=== PATIENT | male | born 1970 | race Asian ===

== ENCOUNTER 2016-06-29 13:38 | Outpatient (CLI) | payer OTHER ==
[~2016-06-29 13:38] MED LIST: AMOX500T5 PO; CETI10TA PO; FLUT0.05 NAS; GLIM4TAB PO; LANTUS100 MG/ML SC; LEVAQUIN500 MG PO; MECL25TA84 PO; PERCOCET1 TA1 PO; WELCHOL625 MG PO; ZESTRIL40 MG PO
== END 2016-06-29 14:38 | disposition home or self-care (01) ==
LOC: LAB 13:38
DX: A09 Infectious gastroenteritis and colitis, unspecified (principal)
CPT/HCPCS: 87045; 87328; 87329; 87493; 87798; 87899

== ENCOUNTER 2016-11-26 21:45 | Emergency (ER) | payer OTHER ==
[~2016-11-26] VITALS: Ht 188 cm; Wt 97.5 kg
[2016-11-26 22:24] LABS: PLATELET COUNT 190 K/uL (142-355)
[2016-11-26 23:39] VITALS: BP 147/89; TEMP 98.7
== END 2016-11-26 23:40 | disposition home or self-care (01) ==
LOC: ED 21:45
DX: S05.11XA Contusion of eyeball and orbital tissues, right eye, initial encounter (principal); V29.9XXA Motorcycle rider (driver) (passenger) injured in unspecified traffic accident, initial encounter; Y93.89 Activity, other specified; Y92.89 Other specified places as the place of occurrence of the external cause
CPT/HCPCS: 36415; 80053; 85027; 99283

== ENCOUNTER 2016-12-09 08:59 | Day surgery (SDC) | payer OTHER | END 2016-12-09 11:34 | disposition home or self-care (01) | LOC: OR 08:59 | PROC: 06HY33Z Insertion of Infusion Device into Lower Vein, Percutaneous Approach (ICD-10-PCS; principal; 2016-12-09) | DX: M86.471 Chronic osteomyelitis with draining sinus, right ankle and foot (principal) | CPT/HCPCS: 36571; C1751 ==

== ENCOUNTER 2016-12-12 15:33 | Outpatient (CLI) | payer OTHER ==
[~2016-12-12] VITALS: Ht 189.2 cm; Wt 99.8 kg
== END 2016-12-12 18:00 | disposition home or self-care (01) ==
LOC: INF 15:33
DX: M86.171 Other acute osteomyelitis, right ankle and foot (principal)
CPT/HCPCS: 96365; 96375

== ENCOUNTER 2016-12-13 17:06 | Outpatient (CLI) | payer OTHER ==
[~2016-12-13] VITALS: Ht 189.2 cm; Wt 99.8 kg
[2016-12-13 17:45] VITALS: BP 162/98; TEMP 98.3
[2016-12-13 18:34] VITALS: BP 137/89; TEMP 98.3
== END 2016-12-13 18:34 | disposition home or self-care (01) ==
LOC: INF 17:06
DX: M86.171 Other acute osteomyelitis, right ankle and foot (principal)
CPT/HCPCS: 96365; 96375; J0878

== ENCOUNTER 2016-12-14 15:45 | Outpatient (CLI) | payer OTHER ==
[~2016-12-14] VITALS: Ht 189.2 cm; Wt 99.8 kg
[2016-12-14 15:55] VITALS: BP 123/76; TEMP 98.4
[2016-12-14 16:58] VITALS: BP 111/70
== END 2016-12-14 18:00 | disposition home or self-care (01) ==
LOC: INF 15:45
DX: M86.171 Other acute osteomyelitis, right ankle and foot (principal)
CPT/HCPCS: 96365; 96375

== ENCOUNTER 2016-12-15 16:03 | Outpatient (CLI) | payer OTHER ==
[~2016-12-15] VITALS: Ht 189.2 cm; Wt 99.8 kg
[2016-12-15 16:10] VITALS: BP 110/72; TEMP 98.4
[2016-12-15 16:55] VITALS: BP 103/70
== END 2016-12-15 16:55 | disposition home or self-care (01) ==
LOC: INF 16:03
DX: M86.171 Other acute osteomyelitis, right ankle and foot (principal)
CPT/HCPCS: 96365; 96375; J0878

== ENCOUNTER 2016-12-16 15:51 | Outpatient (CLI) | payer OTHER ==
[~2016-12-16] VITALS: Ht 170.2 cm; Wt 77.1 kg
== END 2016-12-16 19:18 | disposition home or self-care (01) ==
LOC: INF 15:51
DX: M86.171 Other acute osteomyelitis, right ankle and foot (principal)
CPT/HCPCS: 96365; J0878

== ENCOUNTER 2016-12-17 16:41 | Outpatient (CLI) | payer OTHER | END 2016-12-17 19:45 | disposition home or self-care (01) | LOC: INF 16:41 | DX: M86.171 Other acute osteomyelitis, right ankle and foot (principal) | CPT/HCPCS: 96365; J0878; J1642 ==

== ENCOUNTER 2016-12-18 16:38 | Outpatient (CLI) | payer OTHER | END 2016-12-18 19:40 | disposition home or self-care (01) | LOC: INF 16:38 | DX: M86.171 Other acute osteomyelitis, right ankle and foot (principal) | CPT/HCPCS: 96365; J0878 ==

== ENCOUNTER 2016-12-20 15:40 | Outpatient (CLI) | payer OTHER ==
[~2016-12-20] VITALS: Ht 189.2 cm; Wt 99.8 kg
[2016-12-20 15:45] VITALS: BP 131/79; TEMP 97.4
[2016-12-20 16:40] VITALS: BP 120/75
== END 2016-12-20 16:40 | disposition home or self-care (01) ==
LOC: INF 15:40
DX: M86.171 Other acute osteomyelitis, right ankle and foot (principal)
CPT/HCPCS: 96365; 96375; J0878

== ENCOUNTER 2016-12-21 13:11 | Outpatient (CLI) | payer OTHER ==
[~2016-12-21] VITALS: Ht 188 cm; Wt 97.5 kg
[2016-12-21 13:25] VITALS: BP 112/75; TEMP 97.2
[2016-12-21 14:00] VITALS: BP 123/82; TEMP 97.2
== END 2016-12-21 14:03 | disposition home or self-care (01) ==
LOC: INF 13:11
DX: M86.171 Other acute osteomyelitis, right ankle and foot (principal)
CPT/HCPCS: 96365; 96375; J0878; J1642

== ENCOUNTER 2016-12-22 15:49 | Outpatient (CLI) | payer OTHER ==
[~2016-12-22] VITALS: Ht 189.2 cm; Wt 99.8 kg
[2016-12-22 16:00] VITALS: BP 129/78; TEMP 97.6
== END 2016-12-22 16:45 | disposition home or self-care (01) ==
LOC: INF 15:49
DX: M86.171 Other acute osteomyelitis, right ankle and foot (principal)
CPT/HCPCS: 96365; 96375; J0878

== ENCOUNTER 2016-12-23 15:36 | Outpatient (CLI) | payer OTHER ==
[~2016-12-23] VITALS: Ht 188 cm; Wt 97.5 kg
[2016-12-23 16:42] LABS: SODIUM 138 mmol/L (136-145)
== END 2016-12-23 18:00 | disposition home or self-care (01) ==
LOC: INF 15:36
PROVIDERS: Family Medicine
DX: M86.171 Other acute osteomyelitis, right ankle and foot (principal)
CPT/HCPCS: 80048; 96365; J0878

== ENCOUNTER 2016-12-25 11:29 | Outpatient (CLI) | payer OTHER ==
[~2016-12-25] VITALS: Ht 189.2 cm; Wt 99.8 kg
== END 2016-12-25 19:03 | disposition home or self-care (01) ==
LOC: INF 11:29
DX: M86.171 Other acute osteomyelitis, right ankle and foot (principal)
CPT/HCPCS: 96365; J0878; J1642

== ENCOUNTER 2016-12-26 15:32 | Outpatient (CLI) | payer OTHER ==
[~2016-12-26] VITALS: Ht 188 cm; Wt 97.5 kg
[2016-12-26 16:42] LABS: POTASSIUM 3.8 mmol/L (3.6-5.2); SODIUM 142 mmol/L (136-145)
== END 2016-12-26 18:00 | disposition home or self-care (01) ==
LOC: INF 15:32
PROVIDERS: Family Medicine
DX: M86.171 Other acute osteomyelitis, right ankle and foot (principal)
CPT/HCPCS: 80048; 96365; 96375; J0878

== ENCOUNTER 2016-12-27 15:06 | Outpatient (CLI) | payer OTHER ==
[~2016-12-27] VITALS: Ht 189.2 cm; Wt 99.8 kg
[2016-12-27 15:30] VITALS: BP 143/87; TEMP 97.5
[2016-12-27 16:30] VITALS: BP 133/79
== END 2016-12-27 16:30 | disposition home or self-care (01) ==
LOC: INF 15:06
DX: M86.171 Other acute osteomyelitis, right ankle and foot (principal)
CPT/HCPCS: 96365; J0878

== ENCOUNTER 2016-12-28 13:18 | Outpatient (CLI) | payer OTHER ==
[~2016-12-28] VITALS: Ht 189.2 cm; Wt 99.8 kg
[2016-12-28 13:25] VITALS: BP 124/82; TEMP 97.8
[2016-12-28 14:15] VITALS: BP 123/77; TEMP 98.5
== END 2016-12-28 14:20 | disposition home or self-care (01) ==
LOC: INF 13:18
DX: M86.171 Other acute osteomyelitis, right ankle and foot (principal)
CPT/HCPCS: 96365; 96375; J0878; J1642

== ENCOUNTER 2016-12-29 15:19 | Outpatient (CLI) | payer OTHER ==
[~2016-12-29] VITALS: Ht 189.2 cm; Wt 99.8 kg
[2016-12-29 15:25] VITALS: BP 103/64; TEMP 97.7
[2016-12-29 15:40] VITALS: BP 108/65
== END 2016-12-29 16:30 | disposition home or self-care (01) ==
LOC: INF 15:19
DX: M86.171 Other acute osteomyelitis, right ankle and foot (principal)
CPT/HCPCS: 96365; 96375; J0878

== ENCOUNTER 2016-12-30 13:13 | Outpatient (CLI) | payer OTHER ==
[~2016-12-30] VITALS: Ht 188 cm; Wt 97.5 kg
== END 2016-12-30 19:11 | disposition home or self-care (01) ==
LOC: INF 13:13
DX: M86.171 Other acute osteomyelitis, right ankle and foot (principal)
CPT/HCPCS: 96365; J0878

== ENCOUNTER 2016-12-31 15:40 | Outpatient (CLI) | payer OTHER ==
[~2016-12-31] VITALS: Ht 189.2 cm; Wt 99.8 kg
== END 2016-12-31 19:02 | disposition home or self-care (01) ==
LOC: INF 15:40
DX: M86.171 Other acute osteomyelitis, right ankle and foot (principal)
CPT/HCPCS: 96365; J0878; J1642

== ENCOUNTER 2017-01-01 13:01 | Outpatient (CLI) | payer OTHER ==
[~2017-01-01] VITALS: Ht 189.2 cm; Wt 99.8 kg
== END 2017-01-01 19:23 | disposition home or self-care (01) ==
LOC: INF 13:01
DX: M86.171 Other acute osteomyelitis, right ankle and foot (principal)
CPT/HCPCS: 96365; J0878

== ENCOUNTER 2017-01-02 15:16 | Outpatient (CLI) | payer OTHER ==
[~2017-01-02] VITALS: Ht 189.2 cm; Wt 97.5 kg
== END 2017-01-02 19:00 | disposition home or self-care (01) ==
LOC: INF 15:16
DX: M86.171 Other acute osteomyelitis, right ankle and foot (principal)
CPT/HCPCS: 96365; 96375; J0878

== ENCOUNTER 2017-01-03 15:00 | Outpatient (CLI) | payer OTHER ==
[~2017-01-03] VITALS: Ht 189.2 cm; Wt 97.5 kg
[2017-01-03 16:07] VITALS: BP 117/70; TEMP 97.8
== END 2017-01-03 19:05 | disposition home or self-care (01) ==
LOC: INF 15:00
DX: M86.171 Other acute osteomyelitis, right ankle and foot (principal)
CPT/HCPCS: 96365; 96375; J0878

== ENCOUNTER 2017-01-05 15:30 | Outpatient (CLI) | payer OTHER ==
[~2017-01-05] VITALS: Ht 189.2 cm; Wt 99.8 kg
[2017-01-05 15:35] VITALS: BP 132/85; TEMP 97.6
[2017-01-05 16:16] VITALS: BP 114/71
== END 2017-01-05 16:28 | disposition home or self-care (01) ==
LOC: INF 15:30
DX: M86.171 Other acute osteomyelitis, right ankle and foot (principal)
CPT/HCPCS: 96365; 96375; J0878

== ENCOUNTER 2017-01-06 15:10 | Outpatient (CLI) | payer OTHER ==
[~2017-01-06] VITALS: Ht 189.2 cm; Wt 99.8 kg
[2017-01-06 16:18] LABS: POTASSIUM 3.9 mmol/L (3.6-5.2); SODIUM 140 mmol/L (136-145)
== END 2017-01-06 18:30 | disposition home or self-care (01) ==
LOC: INF 15:10
PROVIDERS: Family Medicine
DX: M86.171 Other acute osteomyelitis, right ankle and foot (principal)
CPT/HCPCS: 80048; 96365; 96375; J0878

== ENCOUNTER 2017-01-07 15:01 | Outpatient (CLI) | payer OTHER ==
[~2017-01-07] VITALS: Ht 189.2 cm; Wt 99.8 kg
== END 2017-01-07 18:05 | disposition home or self-care (01) ==
LOC: INF 15:01
DX: M86.171 Other acute osteomyelitis, right ankle and foot (principal)
CPT/HCPCS: 96365; 96375; J0878

== ENCOUNTER 2017-01-08 14:36 | Outpatient (CLI) | payer OTHER ==
[~2017-01-08] VITALS: Ht 189.2 cm; Wt 99.8 kg
== END 2017-01-08 18:00 | disposition home or self-care (01) ==
LOC: INF 14:36
DX: M86.171 Other acute osteomyelitis, right ankle and foot (principal)
CPT/HCPCS: 96365; J0878

== ENCOUNTER 2017-01-09 15:15 | Outpatient (CLI) | payer OTHER ==
[~2017-01-09] VITALS: Ht 189.2 cm; Wt 99.8 kg
== END 2017-01-09 18:30 | disposition home or self-care (01) ==
LOC: INF 15:15
DX: M86.171 Other acute osteomyelitis, right ankle and foot (principal)
CPT/HCPCS: 96365; J0878

== ENCOUNTER 2017-01-10 15:40 | Outpatient (CLI) | payer OTHER ==
[~2017-01-10] VITALS: Ht 188 cm; Wt 97.5 kg
[2017-01-10 15:55] VITALS: BP 109/71; TEMP 98.4
== END 2017-01-10 16:35 | disposition home or self-care (01) ==
LOC: INF 15:40
DX: M86.171 Other acute osteomyelitis, right ankle and foot (principal)
CPT/HCPCS: 96365; 96375; J0878

== ENCOUNTER 2017-01-11 15:14 | Outpatient (CLI) | payer OTHER ==
[~2017-01-11] VITALS: Ht 189.2 cm; Wt 99.8 kg
[2017-01-11 13:25] VITALS: BP 122/76; TEMP 97.4
[2017-01-11 16:04] VITALS: BP 109/61; TEMP 97.4
== END 2017-01-11 16:35 | disposition home or self-care (01) ==
LOC: INF 15:14
DX: M86.171 Other acute osteomyelitis, right ankle and foot (principal)
CPT/HCPCS: 96365; 96375; J0878

== ENCOUNTER 2017-01-12 15:06 | Outpatient (CLI) | payer OTHER ==
[~2017-01-12] VITALS: Ht 189.2 cm; Wt 99.8 kg
[2017-01-12 15:15] VITALS: BP 110/70; TEMP 98
[2017-01-12 16:01] VITALS: BP 123/73; TEMP 98
== END 2017-01-12 16:25 | disposition home or self-care (01) ==
LOC: INF 15:06
DX: M86.171 Other acute osteomyelitis, right ankle and foot (principal)
CPT/HCPCS: 96365; 96375; J0878

== ENCOUNTER 2017-01-13 13:19 | Outpatient (CLI) | payer OTHER ==
[~2017-01-13] VITALS: Ht 189.2 cm; Wt 99.8 kg
== END 2017-01-13 19:08 | disposition home or self-care (01) ==
LOC: INF 13:19
DX: M86.171 Other acute osteomyelitis, right ankle and foot (principal)
CPT/HCPCS: 96365; J0878; J1642

== ENCOUNTER 2017-01-14 14:14 | Outpatient (CLI) | payer OTHER ==
[~2017-01-14] VITALS: Ht 189.2 cm; Wt 99.8 kg
== END 2017-01-14 19:19 | disposition home or self-care (01) ==
LOC: INF 14:14
DX: M86.171 Other acute osteomyelitis, right ankle and foot (principal)
CPT/HCPCS: 96365; J0878

== ENCOUNTER 2017-01-15 12:33 | Outpatient (CLI) | payer OTHER ==
[~2017-01-15] VITALS: Ht 189.2 cm; Wt 99.8 kg
== END 2017-01-15 19:05 | disposition home or self-care (01) ==
LOC: INF 12:33
DX: M86.171 Other acute osteomyelitis, right ankle and foot (principal)
CPT/HCPCS: 96365; J0878; J1642

== ENCOUNTER 2017-01-16 15:03 | Outpatient (CLI) | payer OTHER ==
[~2017-01-16] VITALS: Ht 189.2 cm; Wt 99.8 kg
== END 2017-01-16 19:33 | disposition home or self-care (01) ==
LOC: INF 15:03
DX: M86.171 Other acute osteomyelitis, right ankle and foot (principal)
CPT/HCPCS: 96365; J0878

== ENCOUNTER 2017-01-17 14:58 | Outpatient (CLI) | payer OTHER ==
[~2017-01-17] VITALS: Ht 189.2 cm; Wt 97.5 kg
== END 2017-01-17 19:07 | disposition home or self-care (01) ==
LOC: INF 14:58
DX: M86.171 Other acute osteomyelitis, right ankle and foot (principal)
CPT/HCPCS: 96365; J0878; J1642

== ENCOUNTER 2017-01-18 13:58 | Outpatient (CLI) | payer OTHER ==
[~2017-01-18] VITALS: Ht 189.2 cm; Wt 99.8 kg
== END 2017-01-18 16:30 | disposition home or self-care (01) ==
LOC: INF 13:58
DX: M86.171 Other acute osteomyelitis, right ankle and foot (principal)
CPT/HCPCS: 96365; J0878

== ENCOUNTER 2017-01-19 11:58 | Outpatient (CLI) | payer OTHER ==
[~2017-01-19] VITALS: Ht 189.2 cm; Wt 97.5 kg
== END 2017-01-19 15:00 | disposition home or self-care (01) ==
LOC: INF 11:58
DX: M86.171 Other acute osteomyelitis, right ankle and foot (principal)
CPT/HCPCS: 96365; J0878; J1642

== ENCOUNTER 2017-01-20 13:54 | Outpatient (CLI) | payer OTHER ==
[~2017-01-20] VITALS: Ht 189.2 cm; Wt 99.8 kg
[2017-01-20 14:49] LABS: POTASSIUM 4.1 mmol/L (3.6-5.2); SODIUM 136 mmol/L (136-145)
== END 2017-01-20 21:38 | disposition home or self-care (01) ==
LOC: INF 13:54
PROVIDERS: Family Medicine
DX: M86.171 Other acute osteomyelitis, right ankle and foot (principal)
CPT/HCPCS: 80048; 96365; J0878

== ENCOUNTER 2017-01-21 11:53 | Outpatient (CLI) | payer OTHER ==
[~2017-01-21] VITALS: Ht 189.2 cm; Wt 99.8 kg
== END 2017-01-21 21:15 | disposition home or self-care (01) ==
LOC: INF 11:53
DX: M86.171 Other acute osteomyelitis, right ankle and foot (principal)
CPT/HCPCS: 96365; J0878

== ENCOUNTER 2017-01-22 12:30 | Outpatient (CLI) | payer OTHER ==
[~2017-01-22] VITALS: Ht 189.2 cm; Wt 99.8 kg
== END 2017-01-22 19:33 | disposition home or self-care (01) ==
LOC: INF 12:30
DX: M86.171 Other acute osteomyelitis, right ankle and foot (principal)
CPT/HCPCS: 96365; 96374; J0878

== ENCOUNTER 2017-01-23 13:41 | Outpatient (CLI) | payer OTHER ==
[~2017-01-23] VITALS: Ht 189.2 cm; Wt 99.8 kg
== END 2017-01-23 19:18 | disposition home or self-care (01) ==
LOC: INF 13:41
DX: M86.171 Other acute osteomyelitis, right ankle and foot (principal)
CPT/HCPCS: 96365; 96375; J0878

== ENCOUNTER 2017-01-24 14:54 | Outpatient (CLI) | payer OTHER ==
[~2017-01-24] VITALS: Ht 189.2 cm; Wt 97.5 kg
[2017-01-24 15:00] VITALS: BP 134/84; TEMP 98.6
[2017-01-24 15:46] VITALS: BP 135/85
== END 2017-01-24 16:10 | disposition home or self-care (01) ==
LOC: INF 14:54
DX: M86.171 Other acute osteomyelitis, right ankle and foot (principal)
CPT/HCPCS: 96365; 96375; J0878; J1642

== ENCOUNTER 2017-01-25 14:58 | Outpatient (CLI) | payer OTHER ==
[~2017-01-25] VITALS: Ht 189.2 cm; Wt 97.5 kg
[2017-01-25 15:05] VITALS: BP 126/66; TEMP 98.6
[2017-01-25 15:55] VITALS: BP 137/82
== END 2017-01-25 15:55 | disposition home or self-care (01) ==
LOC: INF 14:58
DX: M86.171 Other acute osteomyelitis, right ankle and foot (principal)
CPT/HCPCS: 96365; 96375; J0878

== ENCOUNTER 2017-01-26 14:02 | Outpatient (CLI) | payer OTHER ==
[~2017-01-26] VITALS: Ht 188 cm; Wt 97.5 kg
[2017-01-26 14:10] VITALS: BP 125/80; TEMP 98
[2017-01-26 14:28] VITALS: BP 134/85; TEMP 98
== END 2017-01-26 15:15 | disposition home or self-care (01) ==
LOC: INF 14:02
DX: M86.171 Other acute osteomyelitis, right ankle and foot (principal)
CPT/HCPCS: 96365; 96375; J0878

== ENCOUNTER 2017-01-27 13:41 | Outpatient (CLI) | payer OTHER ==
[~2017-01-27] VITALS: Ht 189.2 cm; Wt 97.5 kg
== END 2017-01-27 16:45 | disposition home or self-care (01) ==
LOC: INF 13:41
DX: M86.171 Other acute osteomyelitis, right ankle and foot (principal)
CPT/HCPCS: 96365; J0878

== ENCOUNTER 2017-01-28 09:48 | Outpatient (CLI) | payer OTHER ==
[~2017-01-28] VITALS: Ht 188 cm; Wt 97.5 kg
== END 2017-01-28 20:18 | disposition home or self-care (01) ==
LOC: INF 09:48
DX: M86.171 Other acute osteomyelitis, right ankle and foot (principal)
CPT/HCPCS: 96365; 96375; J0878; J1642

== ENCOUNTER 2017-01-29 12:06 | Outpatient (CLI) | payer OTHER ==
[~2017-01-29] VITALS: Ht 188 cm; Wt 97.5 kg
== END 2017-01-29 19:25 | disposition home or self-care (01) ==
LOC: INF 12:06
DX: M86.171 Other acute osteomyelitis, right ankle and foot (principal)
CPT/HCPCS: 96365; 96375; J0878

== ENCOUNTER 2017-01-30 14:14 | Outpatient (CLI) | payer OTHER ==
[~2017-01-30] VITALS: Ht 188 cm; Wt 97.5 kg
== END 2017-01-30 17:15 | disposition home or self-care (01) ==
LOC: INF 14:14
DX: M86.171 Other acute osteomyelitis, right ankle and foot (principal)
CPT/HCPCS: 96365; 96375; J0878; J1642

== ENCOUNTER 2017-01-31 14:07 | Outpatient (CLI) | payer OTHER ==
[~2017-01-31] VITALS: Ht 188 cm; Wt 97.5 kg
[2017-01-31 14:15] VITALS: BP 114/70; TEMP 98.2
[2017-01-31 14:21] VITALS: BP 128/79; TEMP 98.2
== END 2017-01-31 15:10 | disposition home or self-care (01) ==
LOC: INF 14:07
DX: M86.171 Other acute osteomyelitis, right ankle and foot (principal)
CPT/HCPCS: 96365; 96375; J0878

== ENCOUNTER 2017-02-01 13:29 | Outpatient (CLI) | payer OTHER ==
[~2017-02-01] VITALS: Ht 189.2 cm; Wt 99.8 kg
[2017-02-01 13:35] VITALS: BP 137/88; TEMP 98.5
[2017-02-01 13:51] VITALS: BP 136/87
== END 2017-02-01 14:35 | disposition home or self-care (01) ==
LOC: INF 13:29
DX: M86.171 Other acute osteomyelitis, right ankle and foot (principal)
CPT/HCPCS: 96365; 96375; J0878; J1642

== ENCOUNTER 2017-02-02 14:28 | Outpatient (CLI) | payer OTHER ==
[~2017-02-02] VITALS: Ht 188 cm; Wt 97.5 kg
== END 2017-02-02 19:15 | disposition home or self-care (01) ==
LOC: INF 14:28
DX: M86.171 Other acute osteomyelitis, right ankle and foot (principal)
CPT/HCPCS: 96365; J0330; J0878; J1642; J2250; J2405; J2704; J3490

== ENCOUNTER 2017-02-03 12:45 | Outpatient (CLI) | payer OTHER ==
[~2017-02-03] VITALS: Ht 189.2 cm; Wt 99.8 kg
[2017-02-03 15:21] LABS: POTASSIUM 4.1 mmol/L (3.6-5.2); SODIUM 143 mmol/L (136-145)
== END 2017-02-03 19:00 | disposition home or self-care (01) ==
LOC: INF 12:45
PROVIDERS: Family Medicine
DX: M86.171 Other acute osteomyelitis, right ankle and foot (principal)
CPT/HCPCS: 80048; 96365; J0878

== ENCOUNTER 2017-02-04 11:24 | Outpatient (CLI) | payer OTHER ==
[~2017-02-04] VITALS: Ht 189.2 cm; Wt 99.8 kg
== END 2017-02-04 18:56 | disposition home or self-care (01) ==
LOC: INF 11:24
DX: M86.171 Other acute osteomyelitis, right ankle and foot (principal)
CPT/HCPCS: 96365; J0878; J1642

== ENCOUNTER 2017-02-05 10:21 | Outpatient (CLI) | payer OTHER ==
[~2017-02-05] VITALS: Ht 189.2 cm; Wt 99.8 kg
== END 2017-02-05 19:10 | disposition home or self-care (01) ==
LOC: INF 10:21
DX: M86.171 Other acute osteomyelitis, right ankle and foot (principal)
CPT/HCPCS: 96365; J0878; J1642

== ENCOUNTER 2017-02-06 14:14 | Outpatient (CLI) | payer OTHER ==
[~2017-02-06] VITALS: Ht 189.2 cm; Wt 99.8 kg
== END 2017-02-06 18:00 | disposition home or self-care (01) ==
LOC: INF 14:14
DX: M86.171 Other acute osteomyelitis, right ankle and foot (principal)
CPT/HCPCS: 96365; J0878; J1642

== ENCOUNTER 2017-02-07 13:58 | Outpatient (CLI) | payer OTHER ==
[~2017-02-07] VITALS: Ht 189.2 cm; Wt 99.8 kg
== END 2017-02-07 15:45 | disposition home or self-care (01) ==
LOC: INF 13:58
DX: M86.171 Other acute osteomyelitis, right ankle and foot (principal)
CPT/HCPCS: 96365; 96375; J0878

== ENCOUNTER 2017-02-08 14:01 | Outpatient (CLI) | payer OTHER ==
[~2017-02-08] VITALS: Ht 189.2 cm; Wt 99.8 kg
[2017-02-08 14:05] VITALS: BP 127/77; BP 139/81; TEMP 98.2
== END 2017-02-08 15:00 | disposition home or self-care (01) ==
LOC: INF 14:01
DX: M86.171 Other acute osteomyelitis, right ankle and foot (principal)
CPT/HCPCS: 96365; 96375; J0878

== ENCOUNTER 2017-02-09 14:20 | Outpatient (CLI) | payer OTHER ==
[~2017-02-09] VITALS: Ht 188 cm; Wt 97.5 kg
[2017-02-09 14:30] VITALS: BP 142/93; TEMP 98.1
[2017-02-09 15:44] VITALS: BP 124/78; TEMP 98.1
== END 2017-02-09 15:46 | disposition home or self-care (01) ==
LOC: INF 14:20
DX: M86.171 Other acute osteomyelitis, right ankle and foot (principal)
CPT/HCPCS: 96365; 96375; J0878

== ENCOUNTER 2017-02-10 12:54 | Outpatient (CLI) | payer OTHER ==
[~2017-02-10] VITALS: Ht 188 cm; Wt 97.5 kg
== END 2017-02-10 19:25 | disposition home or self-care (01) ==
LOC: INF 12:54
DX: M86.171 Other acute osteomyelitis, right ankle and foot (principal)
CPT/HCPCS: 96365; J0878

== ENCOUNTER 2017-02-11 10:16 | Outpatient (CLI) | payer OTHER ==
[~2017-02-11] VITALS: Ht 188 cm; Wt 97.5 kg
== END 2017-02-11 18:56 | disposition home or self-care (01) ==
LOC: INF 10:16
DX: M86.171 Other acute osteomyelitis, right ankle and foot (principal)
CPT/HCPCS: 96365; J0878

== ENCOUNTER 2017-02-12 10:04 | Outpatient (CLI) | payer OTHER ==
[~2017-02-12] VITALS: Ht 188 cm; Wt 97.5 kg
== END 2017-02-12 18:56 | disposition home or self-care (01) ==
LOC: INF 10:04
DX: M86.171 Other acute osteomyelitis, right ankle and foot (principal)
CPT/HCPCS: 96365; J0878; J1642

== ENCOUNTER 2017-02-13 14:06 | Outpatient (CLI) | payer OTHER ==
[~2017-02-13] VITALS: Ht 189.2 cm; Wt 99.8 kg
== END 2017-02-13 19:06 | disposition home or self-care (01) ==
LOC: INF 14:06
DX: M86.171 Other acute osteomyelitis, right ankle and foot (principal)
CPT/HCPCS: 96365; J0878; J1642

== ENCOUNTER 2017-02-14 14:05 | Outpatient (CLI) | payer OTHER ==
[~2017-02-14] VITALS: Ht 189.2 cm; Wt 99.8 kg
== END 2017-02-14 19:05 | disposition home or self-care (01) ==
LOC: INF 14:05
DX: M86.171 Other acute osteomyelitis, right ankle and foot (principal)
CPT/HCPCS: 96365; J0878; J1642

== ENCOUNTER 2017-02-15 07:46 | Outpatient (CLI) | payer OTHER ==
[~2017-02-15] VITALS: Ht 189.2 cm; Wt 99.8 kg
== END 2017-02-15 22:46 | disposition home or self-care (01) ==
LOC: INF 07:46
DX: M86.171 Other acute osteomyelitis, right ankle and foot (principal)
CPT/HCPCS: 96365; J0878

== ENCOUNTER 2017-02-16 09:49 | Outpatient (CLI) | payer OTHER ==
[~2017-02-16] VITALS: Ht 189.2 cm; Wt 99.8 kg
== END 2017-02-16 18:20 | disposition home or self-care (01) ==
LOC: INF 09:49
DX: M86.171 Other acute osteomyelitis, right ankle and foot (principal)
CPT/HCPCS: 96365; 96375; J0878; J1642

== ENCOUNTER 2017-02-20 14:03 | Outpatient (CLI) | payer OTHER ==
[~2017-02-20] VITALS: Ht 189.2 cm; Wt 99.8 kg
[2017-02-20 14:42] LABS: SODIUM 137 mmol/L (136-145)
== END 2017-02-20 18:58 | disposition home or self-care (01) ==
LOC: INF 14:03
PROVIDERS: Family Medicine
DX: M86.171 Other acute osteomyelitis, right ankle and foot (principal)
CPT/HCPCS: 36591; 80048; 96365; J0878

== ENCOUNTER 2017-02-21 13:51 | Outpatient (CLI) | payer OTHER ==
[~2017-02-21] VITALS: Ht 189.2 cm; Wt 97.5 kg
[2017-02-21 13:55] VITALS: BP 115/69; TEMP 98.2
== END 2017-02-21 15:00 | disposition home or self-care (01) ==
LOC: INF 13:51
DX: M86.171 Other acute osteomyelitis, right ankle and foot (principal)
CPT/HCPCS: 96365; 96375; J0878; J1642

== ENCOUNTER 2017-02-23 13:51 | Outpatient (CLI) | payer OTHER ==
[~2017-02-23] VITALS: Ht 188 cm; Wt 97.5 kg
[2017-02-23 14:00] VITALS: BP 125/75; TEMP 97.8
[2017-02-23 15:00] VITALS: BP 128/81
== END 2017-02-23 15:00 | disposition home or self-care (01) ==
LOC: INF 13:51
DX: M86.171 Other acute osteomyelitis, right ankle and foot (principal)
CPT/HCPCS: 96365; 96366; J0878

== ENCOUNTER 2017-02-24 12:56 | Outpatient (CLI) | payer OTHER ==
[~2017-02-24] VITALS: Ht 189.2 cm; Wt 97.5 kg
== END 2017-02-24 14:00 | disposition home or self-care (01) ==
LOC: INF 12:56
DX: M86.171 Other acute osteomyelitis, right ankle and foot (principal)
CPT/HCPCS: 96365; J0878; J1642

== ENCOUNTER 2017-02-25 10:03 | Outpatient (CLI) | payer OTHER ==
[~2017-02-25] VITALS: Ht 188 cm; Wt 97.5 kg
== END 2017-02-25 12:00 | disposition home or self-care (01) ==
LOC: INF 10:03
DX: M86.171 Other acute osteomyelitis, right ankle and foot (principal)
CPT/HCPCS: 96365; 96375; J0878; J1642

== ENCOUNTER 2017-02-26 10:00 | Outpatient (CLI) | payer OTHER ==
[~2017-02-26] VITALS: Ht 188 cm; Wt 97.5 kg
== END 2017-02-26 12:00 | disposition home or self-care (01) ==
LOC: INF 10:00
DX: M86.171 Other acute osteomyelitis, right ankle and foot (principal)
CPT/HCPCS: 96365; J0878; J1642

== ENCOUNTER 2017-02-27 14:06 | Outpatient (CLI) | payer OTHER ==
[~2017-02-27] VITALS: Ht 189.2 cm; Wt 99.8 kg
== END 2017-02-27 15:15 | disposition home or self-care (01) ==
LOC: INF 14:06
DX: M86.171 Other acute osteomyelitis, right ankle and foot (principal)
CPT/HCPCS: 96365; 96375; J0878; J1642

== ENCOUNTER 2017-02-28 13:55 | Outpatient (CLI) | payer OTHER ==
[~2017-02-28] VITALS: Ht 189.2 cm; Wt 99.8 kg
[2017-02-28 14:00] VITALS: BP 117/74; TEMP 98.2
[2017-02-28 15:50] VITALS: BP 113/73; TEMP 98.2
== END 2017-02-28 16:00 | disposition home or self-care (01) ==
LOC: INF 13:55
DX: M86.171 Other acute osteomyelitis, right ankle and foot (principal)
CPT/HCPCS: 96365; 96375; J0878

== ENCOUNTER 2017-03-01 14:04 | Outpatient (CLI) | payer OTHER ==
[~2017-03-01] VITALS: Ht 189.2 cm; Wt 97.5 kg
[2017-03-01 14:10] VITALS: BP 130/78; TEMP 98
[2017-03-01 14:30] LABS: POTASSIUM 4.1 mmol/L (3.6-5.2); SODIUM 138 mmol/L (136-145)
[2017-03-01 14:44] VITALS: BP 120/64; TEMP 98
== END 2017-03-01 15:10 | disposition home or self-care (01) ==
LOC: INF 14:04
PROVIDERS: Family Medicine
DX: M86.171 Other acute osteomyelitis, right ankle and foot (principal)
CPT/HCPCS: 36591; 80048; 96365; 96375; J0878

== ENCOUNTER 2017-03-03 14:05 | Outpatient (CLI) | payer OTHER ==
[~2017-03-03] VITALS: Ht 189.2 cm; Wt 97.5 kg
== END 2017-03-03 19:20 | disposition home or self-care (01) ==
LOC: INF 14:05
DX: M86.171 Other acute osteomyelitis, right ankle and foot (principal)
CPT/HCPCS: 96365; 96375; J0878; J1642

== ENCOUNTER 2017-03-04 10:01 | Outpatient (CLI) | payer OTHER ==
[~2017-03-04] VITALS: Ht 188 cm; Wt 97.5 kg
== END 2017-03-04 11:05 | disposition home or self-care (01) ==
LOC: INF 10:01
DX: M86.171 Other acute osteomyelitis, right ankle and foot (principal)
CPT/HCPCS: 96365; 96375; J0878; J1642

== ENCOUNTER 2017-03-06 13:45 | Outpatient (CLI) | payer OTHER | END 2017-03-06 19:22 | disposition home or self-care (01) | LOC: INF 13:45 | DX: M86.171 Other acute osteomyelitis, right ankle and foot (principal) | CPT/HCPCS: 87070 ==

== ENCOUNTER 2017-08-30 11:01 | Day surgery (SDC) | payer OTHER ==
[2017-08-30 12:19] LABS: PLATELET COUNT 200 K/uL (142-355)
[2017-08-30 12:22] LABS: POTASSIUM 4.3 mmol/L (3.6-5.2)
== END 2017-08-30 15:02 | disposition home or self-care (01) ==
LOC: OR 11:01
PROVIDERS: Student in an Organized Health Care Education/Training Program
PROC: 0J9C0ZZ Drainage of Pelvic Region Subcutaneous Tissue and Fascia, Open Approach (ICD-10-PCS; principal; 2017-08-30)
DX: L02.214 Cutaneous abscess of groin (principal)
CPT/HCPCS: 80053; 85027; 87070; 87076; 87205; J0180; J0132; J1170; J2001; J2250; J2405; J2704; J3010

== ENCOUNTER 2017-09-05 11:45 | Outpatient (CLI) | payer OTHER ==
[2017-09-05] MEDS ORDERED: CIPRSUS PO (12:21)
[2017-09-05] MEDS ORDERED: NAPROSYN500 MG PO (13:18)
== END 2017-09-05 11:46 | disposition short-term general hospital (02) ==
LOC: AMB 11:45
DX: M25.512 Pain in left shoulder (principal); M89.8X7 Other specified disorders of bone, ankle and foot; V59.9XXA Occupant (driver) (passenger) of pick-up truck or van injured in unspecified traffic accident, initial encounter; Y93.89 Activity, other specified; Y92.89 Other specified places as the place of occurrence of the external cause; Y99.8 Other external cause status
CPT/HCPCS: A0425; A0427

== ENCOUNTER 2017-09-05 11:51 | Emergency (ER) | payer OTHER ==
[~2017-09-05] VITALS: Ht 188 cm; Wt 102.1 kg
[2017-09-05] MEDS ORDERED: CIPRSUS PO (12:21)
[2017-09-05] MEDS ORDERED: NAPROSYN500 MG PO (13:18)
[2017-09-05 13:25] VITALS: BP 140/89; TEMP 98.6
== END 2017-09-05 13:25 | disposition home or self-care (01) ==
LOC: ED 11:51
DX: M54.2 Cervicalgia (principal); M25.532 Pain in left wrist; M25.572 Pain in left ankle and joints of left foot; R10.31 Right lower quadrant pain; V53.5XXA Driver of pick-up truck or van injured in collision with car, pick-up truck or van in traffic accident, initial encounter
CPT/HCPCS: 99283

== ENCOUNTER 2019-05-29 06:32 | Outpatient (CLI) | payer OTHER ==
[~2019-05-29 06:32] MED LIST changes: +CIPRSUS PO; +NAPROSYN500 MG PO
[2019-05-29 06:56] LABS: PLATELET COUNT 167 K/uL (142-355)
== END 2019-05-29 19:27 | disposition home or self-care (01) ==
LOC: LAB 06:32
PROVIDERS: Internal Medicine
DX: E11.22 Type 2 diabetes mellitus with diabetic chronic kidney disease (principal); N18.3 Chronic kidney disease, stage 3 (moderate)
CPT/HCPCS: 36415; 80053; 80061; 81000; 82570; 83036; 83735; 83970; 84100; 84155; 85027

== ENCOUNTER 2019-07-17 11:05 | Outpatient (CLI) | payer OTHER | END 2019-07-17 22:56 | disposition home or self-care (01) | LOC: LABW 11:05 | DX: D64.9 Anemia, unspecified (principal) | CPT/HCPCS: 36415; 82306; 82607; 82728; 82746; 83540; 83550 ==

== ENCOUNTER 2020-10-12 14:58 | Emergency (ER) | payer OTHER ==
[~2020-10-12] VITALS: Ht 188 cm; Wt 102.1 kg
[2020-10-12 14:58] VITALS: TEMP 98.6
[2020-10-12 16:25] VITALS: BP 142/83
== END 2020-10-12 16:25 | disposition home or self-care (01) ==
LOC: ED 15:01
DX: S50.312A Abrasion of left elbow, initial encounter (principal); S50.02XA Contusion of left elbow, initial encounter; S54.02XA Injury of ulnar nerve at forearm level, left arm, initial encounter; Y35.811A Legal intervention involving manhandling, law enforcement official injured, initial encounter; Y92.89 Other specified places as the place of occurrence of the external cause
CPT/HCPCS: 99284

== ENCOUNTER 2021-06-25 08:25 | Outpatient (CLI) | payer OTHER | END 2021-06-25 20:47 | disposition home or self-care (01) | LOC: US 08:25 | PROVIDERS: ATTEND Internal Medicine | DX: G62.9 Polyneuropathy, unspecified (principal); E11.9 Type 2 diabetes mellitus without complications ==

== ENCOUNTER 2021-09-06 16:39 | Outpatient (CLI) | payer OTHER | END 2021-09-06 19:05 | disposition home or self-care (01) | LOC: CT 16:39 | PROVIDERS: ATTEND Internal Medicine | DX: R10.84 Generalized abdominal pain (principal) ==

== ENCOUNTER 2022-01-28 11:18 | Outpatient (CLI) | payer OTHER | END 2022-01-28 19:06 | disposition home or self-care (01) | LOC: RAD 11:18 | PROVIDERS: ATTEND Internal Medicine | DX: M79.671 Pain in right foot (principal) ==

== ENCOUNTER 2022-11-10 08:39 | Outpatient (CLI) | payer BC | END 2022-11-10 19:06 | disposition home or self-care (01) | LOC: RAD 08:39 | PROVIDERS: ATTEND Internal Medicine | DX: Z01.818 Encounter for other preprocedural examination (principal) | CPT/HCPCS: 93005 ==